=== PATIENT | male | born 1970 | race Caucasian/White ===

== ENCOUNTER 2016-05-24 01:32 | Emergency (ER) | payer BC ==
[~2016-05-24] VITALS: Ht 182.9 cm; Wt 108.9 kg
[2016-05-24] MEDS ORDERED: PENICILLIN V POTASSIUM 500 MG TABLET PO ONE ×2 (01:56→02:00)
[2016-05-24] MEDS ORDERED: DEXAMETHASONE SOD PHOSPHATE 10 MG/ML VIAL ONE (01:56)
[2016-05-24] MEDS ORDERED: KETOROLAC TROMETHAMINE INJ 30 MG/ML VIAL ONE (01:56)
[2016-05-24] MEDS ORDERED: KETOROLAC TROMETHAMINE INJ 60 MG/2 ML VIAL IM ONE (02:00)
[2016-05-24] MEDS ORDERED: DEXAMETHASONE SOD PHOSPHATE 10 MG/ML VIAL IV ONE (02:00)
[2016-05-24 03:51] VITALS: BP 121/67
== END 2016-05-24 03:54 | disposition home or self-care (01) ==
LOC: ER 01:35
DX: K12.2 Cellulitis and abscess of mouth (principal)
CPT/HCPCS: 96372; 99283; A4606; J1100; J1885; Z7610

== ENCOUNTER 2016-11-07 17:09 | Emergency (ER) | payer BC ==
[~2016-11-07] VITALS: Ht 193 cm; Wt 117.9 kg
[2016-11-07 17:15] VITALS: BP 150/80
== END 2016-11-07 17:53 | disposition home or self-care (01) ==
LOC: ER 17:13
DX: H66.012 Acute suppurative otitis media with spontaneous rupture of ear drum, left ear (principal); J06.9 Acute upper respiratory infection, unspecified; I10 Essential (primary) hypertension
CPT/HCPCS: 69200; 99284; A4606; Z7610

== ENCOUNTER 2021-03-16 18:04 | Emergency (ER) | payer BC, OTHER ==
[~2021-03-16] VITALS: Ht 190.5 cm; Wt 108.9 kg
[2021-03-16] MEDS ORDERED: IBUPROFEN 600 MG TABLET ONE (19:02)
[2021-03-16] MEDS ORDERED: diphenhydrAMINE HCL 25 MG CAPSULE ONE (19:02)
[2021-03-16] MEDS: diphenhydrAMINE HCL 25 MG CAPSULE PO ONE (19:04)
[2021-03-16] MEDS: IBUPROFEN 600 MG TABLET PO ONE (19:04)
[2021-03-16 20:46] VITALS: BP 138/99
== END 2021-03-16 20:46 | disposition home or self-care (01) ==
LOC: ER 18:05
DX: R22.41 Localized swelling, mass and lump, right lower limb (principal); I83.91 Asymptomatic varicose veins of right lower extremity; I10 Essential (primary) hypertension
CPT/HCPCS: 73630-TC; 93971-TC; Q0163